=== PATIENT | male | born 1965 | race Caucasian/White ===

== ENCOUNTER 2016-12-13 17:13 | Emergency (ER) | payer SELFPAY ==
--- NOTE | 2016-12-15 23:42 | ER ---
ADMIT: 12/13/2016 RM/LOC: ER [facility] MR#: [id number] [address] [facility] [address] [place] [phone] CALL, DONALDO CHILD [address] [address] Emergency Room Report SEX: M AGE: 51 : 1965 DATE: 12/13/2016 CHIEF COMPLAINT: Intoxication. HISTORY OF PRESENT ILLNESS: This is a 51-year-old, white male, who comes to us via EMS after he was found in the lawn at [facility]. The patient was in the [facility] treatment program, when he was discharged after he was caught drinking in the treatment facility. States staff at the [facility] found him in the lawn and called EMS suspicious for alcohol intoxication. The patient arrives in the ER intoxicated stating his last drink was just prior to arrival. He does drink daily and sounds like he has some situational problems with an ex- reading through the [facility] notes provided to us. Denies any suicidal thoughts. Denies any fever, headache, problem with vision, chest pain, shortness of breath, cough, or abdominal pain. PAST MEDICAL HISTORY: Does have history of hypertension and seizure disorder. MEDICATIONS: Takes phenytoin for seizure disorder. ALLERGIES: HAS AN ALLERGY TO CONTRAST IV. COURSE IN THE EMERGENCY ROOM: The patient was seen and examined. He is intoxicated, but he does arouse to answer questions. Pupils are equal and reactive to light. Extraocular muscles are intact. Strength is intact in the upper and lower extremities. I did draw some basic labs on him showing white count 9.0, hemoglobin 13.7, hematocrit 39.4, platelets 206. Sodium 142, potassium 3.6, CO2 of 26, glucose 102, creatinine 0.7, bilirubin 0.1, AST 23, ALT 23, ethanol was 352. This patient was given a liter of normal saline and will be monitored until he was medically stable for discharge. IMPRESSION: Alcohol intoxication. DISPOSITION: The patient is discharged from the Emergency Department. He is able to get out of bed on his own. He is oriented to person, place, and time. He is protecting his airway. Does tell me that he plans on staying for the entire night. We did phone [facility] to see if they had bed available or he will be discharged from the department. Discharged in stable condition. MOHINI Mejia / Rogelio Angel MD / callie JOB #: [id number] CC: Vicnent Luis MD, Attending Physician . [facility], [facility] Physician
== END 2016-12-13 22:28 | disposition home or self-care (01) ==
LOC: ER 17:13
DX: F10.129 Alcohol abuse with intoxication, unspecified (principal); F41.9 Anxiety disorder, unspecified; K21.9 Gastro-esophageal reflux disease without esophagitis; G47.30 Sleep apnea, unspecified; Z91.041 Radiographic dye allergy status

== ENCOUNTER 2016-12-14 10:05 | Emergency (ER) | payer SELFPAY ==
--- NOTE | 2016-12-20 08:44 | ER ---
ADMIT: 12/14/2016 RM/LOC: ER [facility] MR#: [id number] [facility] [address] [place] [phone] CALL, DONALDO CHILD [address] [address] Emergency Room Report SEX: M AGE: 51 : 1965 DATE: 12/14/2016 CHIEF COMPLAINT: Alcohol intoxication. HISTORY OF PRESENT ILLNESS: This is a 51-year-old male, who returns to the ER with acute alcohol intoxication. The patient was in the ER yesterday for similar complaints. He was at the [facility] when he was discharged for drinking. He did go to the [facility] for treatment and subsequently discharged from this facility for alcohol use. He was found on the lawn yesterday at [facility], brought to the ER for evaluation and management. We did send him to [facility] for detoxication last evening. He returns today from [facility] stating that he is too intoxicated to be in their care. States his last drink was vodka just prior to arrival. He drinks daily up to 20 beers a day or a liter of vodka. PAST MEDICAL HISTORY: Hypertension and seizure disorder on phenytoin. COURSE IN EMERGENCY ROOM: Patient seen and examined. He is acutely intoxicated. He will arouse to follow commands slowly. He is in no acute distress. Pupils are equal and reactive to light. He does have strength in the upper and lower extremities equal compared bilaterally. He is in no respiratory distress. Breath sounds are normal. Heart is regular rate and rhythm. Abdomen is soft and nontender. No pedal edema. We did start him on IV normal saline 1 L, did give him Zofran 4 mg IV as well as thiamine 200 mg IV and we did give him a dose of phenytoin 200 mg p.o. IMPRESSION: 1. Acute alcohol intoxication. 2. Seizure disorder. DISPOSITION: Patient was discharged to return to [facility] for alcohol detoxication. He is to stop drinking. Continue all his home medications. Discharged in stable condition. MOHINI Mejia / Vincent Luis MD / callie JOB #: [id number] CC: Vincent Luis MD, Attending Physician UNKNOWN, Family Physician
== END 2016-12-14 16:15 | disposition home or self-care (01) ==
LOC: ER 10:05
DX: F10.129 Alcohol abuse with intoxication, unspecified (principal); G40.909 Epilepsy, unspecified, not intractable, without status epilepticus; I10 Essential (primary) hypertension; F17.210 Nicotine dependence, cigarettes, uncomplicated; Z90.89 Acquired absence of other organs; Z90.49 Acquired absence of other specified parts of digestive tract; Z91.041 Radiographic dye allergy status; Z79.899 Other long term (current) drug therapy

== ENCOUNTER 2016-12-14 20:17 | Emergency (ER) | payer OTHER ==
--- NOTE | 2016-12-18 19:08 | ER ---
ADMIT: 12/14/2016 RM/LOC: ER [facility] MR#: [id number] [address] [facility] [address] [place] [phone] CALL, DONALDO CHILD [address] [address] Emergency Room Report SEX: M AGE: 51 : 1965 DATE: 12/14/2016 HISTORY OF PRESENT ILLNESS: A 51-year-old male, ETOH intoxication, released from the emergency room maybe a couple hours prior to his 2nd return via ambulance apparently went out from the ER after he got hydrated given multivitamin, IV fluid hydration, and his Dilantin for his seizure disorder and went back to drinking alcohol. PAST MEDICAL HISTORY: Anxiety, seizure disorder, sleep apnea, and high cholesterol. ALLERGIES: HE IS ALLERGIC TO CONTRAST DYE. SOCIAL HISTORY: Doing vodka daily and 20 beers. PHYSICAL EXAMINATION: VITAL SIGNS: vitals; 146/78 blood pressure, heart rate is 89, respirations 14, temp is 96.2, and O2 sats 92%. GENERAL: He does have horizontal nystagmus. He is extremely intoxicated. He is alert but sleepy. RESPIRATIONS: No distress. CVS: Regular in rate and rhythm. ABDOMEN: Nontender. SKIN: Good color. Intact EXTREMITIES: Well perfused. Police contacted and the patient will be going in for his own protection for medical clearance, alcohol intoxication. Released to police. MOHINI Rodrigues / Rogelio Angel MD / kylel JOB #: [id number] CC: Rogelio Angel MD, Attending Physician
== END 2016-12-14 21:11 ==
LOC: ER 20:17
DX: F10.129 Alcohol abuse with intoxication, unspecified (principal); F41.9 Anxiety disorder, unspecified; G40.909 Epilepsy, unspecified, not intractable, without status epilepticus; E78.00 Pure hypercholesterolemia, unspecified; Z91.041 Radiographic dye allergy status